=== PATIENT | female | born 1990 | race Hispanic/Latino ===

== ENCOUNTER 2017-06-26 00:06 | Emergency (ER) | payer SELFPAY ==
--- NOTE | 2017-06-26 00:28 | ER ---
Nurse's Notes [facility] Name: Penelope Villarreal Age: 27 yrs Sex: Female : 1990 Arrival Date: 06/26/2017 Time: 00:07 Bed Waiting Private MD: Diagnosis: Otalgia, left ear Presentation: 06/26 00:24 Presenting complaint: Patient states: that she is having pain to left ear that started fc Saturday. Pain is currently to entire left side of face. Transition of care: patient was not received from another setting of care. Onset of symptoms was June 22, 2017. Initial Sepsis Screen: Does the patient meet any 2 criteria? No. Patient's initial sepsis screen is negative. Does the patient have a suspected source of infection? No. Patient's initial sepsis screen is negative. Care prior to arrival: None. 00:24 Method Of Arrival: Ambulatory 00:24 Acuity: MOMO 4 Triage Assessment: 00:26 General: Appears uncomfortable, obese, Behavior is calm, cooperative, appropriate for age. Pain: Complains of pain in left ear Pain currently is 6 out of 10 on a pain scale. Quality of pain is described as aching, throbbing, Pain began gradually, Is continuous. EENT: Ear canal clear on left ear Reports pain in left occipital area, left mandaeism, left ear and left zygomatic area. Neuro: Level of Consciousness is awake, alert, obeys commands, Oriented to person, place, time, situation. Cardiovascular: No deficits noted. Respiratory: No deficits noted. GI: No deficits noted. : No deficits noted. Derm: Skin is pink, warm \T\ dry. Musculoskeletal: Circulation, motion, and sensation intact. Capillary refill < 3 seconds, Range of motion: intact in all extremities. 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 - Social history:: Smoking status: Patient/guardian denies using tobacco. Screenin:28 Abuse screen: Denies threats or abuse. Nutritional screening: No deficits noted. fc Tuberculosis screening: No symptoms or risk factors identified. Fall Risk None identified. Assessment: 00:26 Reassessment: Lorrie FOUNDATION RELATIONS MANAGER in to see and examine pt in triage. 00:47 Reassessment: No changes from previously documented assessment. pt given complete discharge instructions. Pt crying. when asked if she wanted Rn to try and get her RX for pain for home pt stated if it continued she would just go to another place to get checked. Explained low income clinic and ENT specialist to pt. States that she understands. Vital Signs: 00:28 BP 121 / 79; Pulse 77; Resp 16; Temp 97.5(TE); Pulse Ox 99% on R/A; Weight 86.18 kg fc (R); Height 5 ft. 6 in. (167.64 cm) (R); Pain 6/10; 00:28 Body Mass Index 30.67 (86.18 kg, 167.64 cm) ED Course: 00:07 Patient arrived in ED. ds1 00:23 Lorrie Gan FNP-C is [facility]. kb 00:23 Marcus Duff MD is Attending Physician. kb 00:25 Triage completed. fc 00:26 Arm band placed on. fc 00:28 Patient has correct armband on for positive identification. Call light in reach. 00:28 No provider procedures requiring assistance completed. Patient did not have IV access fc during this emergency room visit. Administered Medications: No medications were administered Outcome: 00:27 Discharge ordered by . kb 00:46 Discharged to home ambulatory. fc 00:46 Condition: stable 00:46 Discharge instructions given to patient, Instructed on discharge instructions, follow up and referral plans. if continued pain, drainage from ear or worsening of pain to return to ER or other facility Demonstrated understanding of instructions, follow-up care, things to monitor for and return for Prescriptions given X none 00:50 Patient left the ED. Signatures: Lorrie Gan FNP-C FNP-Ckb Chretien, Felicia, RN RN Avril Pate ds1
--- NOTE | 2017-06-26 00:28 | EDPHYS ---
Physician Documentation [facility] Name: Penelope Villarreal Age: 27 yrs Sex: Female : 1990 Arrival Date: 06/26/2017 Time: 00:07 Bed Waiting Private MD: ED Physician Marcus Duff HPI: 06/26 00:28 This 27 yrs old Female presents to ER via Ambulatory with complaints of Ear kb Pain. 00:28 The patient presents with pain, that is acute. The complaints affect the left ear. kb Onset: The symptoms/episode began/occurred 4 day(s) ago. Modifying factors: The symptoms are alleviated by nothing, the symptoms are aggravated by touching. Associated signs and symptoms: The patient has no apparent associated signs or symptoms. Severity of symptoms: At their worst the symptoms were moderate in the emergency department the symptoms are unchanged. The patient has not experienced similar symptoms in the past. The patient has not recently seen a physician. Pt reports left ear pain, worse when moving pinna. Denies drainage, swelling, decreased hearing, fever. 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 - Social history:: Smoking status: Patient/guardian denies using tobacco. ROS: 00:28 Constitutional: Negative for fever, chills, and weight loss, Cardiovascular: Negative kb for chest pain, palpitations, and edema, Respiratory: Negative for shortness of breath, cough, wheezing, and pleuritic chest pain, Abdomen/GI: Negative for abdominal pain, nausea, vomiting, diarrhea, and constipation, MS/Extremity: Negative for injury and deformity, Skin: Negative for injury, rash, and discoloration, Neuro: Negative for headache, weakness, numbness, tingling, and seizure. 00:28 ENT: Positive for ear pain. Exam: 00:28 Constitutional: This is a well developed, well nourished patient who is awake, alert, kb and in no acute distress. Head/Face: Normocephalic, atraumatic. ENT: Nares patent. No nasal discharge, no septal abnormalities noted. Tympanic membranes are normal and external auditory canals are clear. Oropharynx with no redness, swelling, or masses, exudates, or evidence of obstruction, uvula midline. Mucous membranes moist. Neck: Trachea midline, no thyromegaly or masses palpated, and no cervical lymphadenopathy. Supple, full range of motion without nuchal rigidity, or vertebral point tenderness. No Meningismus. Chest/axilla: Normal chest wall appearance and motion. Nontender with no deformity. No lesions are appreciated. Cardiovascular: Regular rate and rhythm with a normal S1 and S2. No gallops, murmurs, or rubs. Normal PMI, no JVD. No pulse deficits. Respiratory: Lungs have equal breath sounds bilaterally, clear to auscultation and percussion. No rales, rhonchi or wheezes noted. No increased work of breathing, no retractions or nasal flaring. Abdomen/GI: Soft, non-tender, with normal bowel sounds. No distension or tympany. No guarding or rebound. No evidence of tenderness throughout. Skin: Warm, dry with normal turgor. Normal color with no rashes, no lesions, and no evidence of cellulitis. MS/ Extremity: Pulses equal, no cyanosis. Neurovascular intact. Full, normal range of motion. Neuro: Awake and alert, GCS 15, oriented to person, place, time, and situation. Cranial nerves II-XII grossly intact. Motor strength 5/5 in all extremities. Sensory grossly intact. Cerebellar exam normal. Normal gait. Vital Signs: 00:28 BP 121 / 79; Pulse 77; Resp 16; Temp 97.5(TE); Pulse Ox 99% on R/A; Weight 86.18 kg fc (R); Height 5 ft. 6 in. (167.64 cm) (R); Pain 6/10; 00:28 Body Mass Index 30.67 (86.18 kg, 167.64 cm) fc MDM: 00:24 Patient medically screened. kb 00:29 Data reviewed: vital signs, nurses notes. Data interpreted: Pulse oximetry: on room air kb is 100 %. Interpretation: normal. Counseling: I had a detailed discussion with the patient and/or guardian regarding: the historical points, exam findings, and any diagnostic results supporting the discharge/admit diagnosis, the need for outpatient follow up, a family practitioner, to return to the emergency department if symptoms worsen or persist or if there are any questions or concerns that arise at home. Administered Medications: No medications were administered Disposition: 06:46 Co-signature as Attending Physician, Marcus Duff MD Available for consultation at ps1 all times. . Disposition: 06/26/17 00:27 Discharged to Home. Impression: Otalgia, left ear. - Condition is Stable. - Discharge Instructions: Earache. - Medication Reconciliation Form, Thank You Letter, Antibiotic Education, Prescription Opioid Use form. - Follow up: Emergency Department; When: As needed; Reason: Worsening of condition. Follow up: Private Physician; When: 2 - 3 days; Reason: Recheck today's complaints, Continuance of care, Re-evaluation by your physician. Signatures: Lorrie Gan, JULIANO MORROW-Wanda Cunningham, RN RN Marcus Angela MD MD ps1
== END 2017-06-26 00:50 | disposition home or self-care (01) ==
LOC: ER 00:06
DX: H92.02 Otalgia, left ear (principal)
CPT/HCPCS: 99282

== ENCOUNTER 2020-12-22 23:54 | Emergency (ER) | payer SELFPAY ==
[2020-12-23 01:19] LABS: Urine Blood 2+ (Negative); Urine Glucose Negative (Negative); Urine Protein 2+ (Negative); Urine Specific Gravity >=1.030 (1.005-1.030); Urine pH 5.5 (5.0-7.0)
[2020-12-23] MEDS ORDERED: NA CHLORIDE 0.9% 1,000 ML ONE (01:25)
[2020-12-23] MEDS ORDERED: ONDANSETRON 4 MG/2 ML VIAL ONE (01:25)
[2020-12-23] MEDS ORDERED: PANTOPRAZOLE 40 MG INJ ONE (01:25)
[2020-12-23 01:32] LABS: Absolute Lymphocytes (CBC) 2.2 K/uL (0.7-4.9); Basophils % 0.4 % (0-1.3); Hematocrit 36.2 % (36.0-45.0); Lymphocytes % 16.9 % (15.3-44.8); MPV 9.7 fL (7.6-11.3); RBC Red Blood Cell Count 4.53 M/uL (3.86-4.86)
[2020-12-23 01:33] LABS: Urine Specific Gravity/Preg >1.030 (1.005-1.030)
[2020-12-23 01:33] LABS: Protime INR 1.01
[2020-12-23 01:41] LABS: ALT/SGPT 29 U/L (12-78); AST/SGOT 14 U/L (15-37); Albumin 3.4 g/dL (3.4-5.0); Alkaline Phosphatase 105 U/L (45-117); BUN Blood Urea Nitrogen 15 mg/dL (7-18); Bicarbonate 23 mmol/L (21-32); Bilirubin Direct < 0.1 mg/dL (0-0.2); Bilirubin Total 0.3 mg/dL (0.2-1.0); Glucose Level 96 mg/dL (74-106); Lipase 47 U/L (73-393); Potassium 3.9 mmol/L (3.5-5.1); Protein, Total 7.9 g/dL (6.4-8.2); Sodium Level 140 mmol/L (136-145)
--- NOTE | 2020-12-23 02:51 | EDPHYS ---
Physician Documentation [facility] Name: Penelope Villarreal Age: 30 yrs Sex: Female : 1990 Arrival Date: 12/22/2020 Time: 23:59 Bed 15 Private MD: ED Physician Robby Gallegos HPI: 12/23 00:25 This 30 yrs old Female presents to ER via Ambulatory with complaints of cp Nausea, VOMITING BLOOD, Weakness, Abdominal Pain. 00:25 The patient presents to the emergency department with nausea, that is moderate, cp vomiting, that is intermittent, described as blood streaked, abdominal pain, of the lower abdomen. Onset: The symptoms/episode began/occurred last night. Possible causes: unknown. Associated signs and symptoms: Pertinent positives: headache, general weakness, Pertinent negatives: constipation, diarrhea, fever. Severity of symptoms: in the emergency department the symptoms are unchanged despite home interventions. 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 - Social history:: Smoking status: Patient denies any tobacco usage or history of. ROS: 00:30 Constitutional: Negative for body aches, chills, fever, poor PO intake. cp 00:30 Eyes: Negative for injury, pain, redness, and discharge. cp 00:30 ENT: Negative for ear pain, sore throat, difficulty swallowing, difficulty handling secretions. 00:30 Cardiovascular: Negative for chest pain, palpitations. 00:30 Respiratory: Negative for cough, shortness of breath, wheezing. 00:30 Abdomen/GI: Positive for abdominal pain, nausea and vomiting, hematemesis, Negative for diarrhea, constipation. 00:30 Back: Negative for pain at rest, pain with movement. 00:30 : Negative for urinary symptoms. 00:30 Neuro: Negative for altered mental status, headache, syncope, weakness. 00:30 All other systems are negative. Exam: 00:35 Constitutional: The patient appears in no acute distress, alert, awake, non-toxic, well cp developed, well nourished, obese. 00:35 Head/Face: Normocephalic, atraumatic. cp 00:35 Eyes: Periorbital structures: appear normal, Conjunctiva: normal, no exudate, no injection, Sclera: no appreciated abnormality, Lids and lashes: appear normal, bilaterally. 00:35 ENT: External ear(s): are unremarkable, Nose: is normal, Mouth: Lips: moist, Oral mucosa: moist, Posterior pharynx: Airway: no evidence of obstruction, patent. 00:35 Chest/axilla: Inspection: normal. 00:35 Cardiovascular: Rate: normal, Rhythm: regular. 00:35 Respiratory: the patient does not display signs of respiratory distress, Respirations: normal, no use of accessory muscles, no retractions, labored breathing, is not present, Breath sounds: are clear throughout, no decreased breath sounds, no stridor, no wheezing. 00:35 Abdomen/GI: Inspection: abdomen appears normal, Bowel sounds: active, all quadrants, Palpation: soft, in all quadrants, mild abdominal tenderness, in the right lower quadrant and left lower quadrant, rebound tenderness, is not appreciated, voluntary guarding, is not appreciated, involuntary guarding, is not appreciated. 00:35 Back: CVA tenderness, is absent. 00:35 Neuro: Orientation: to person, place \T\ time. Mentation: is normal, Motor: moves all fours, strength is normal, Sensation: is normal. Vital Signs: 00:16 BP 125 / 73; Pulse 91; Resp 16 S; Temp 97.7(O); Pulse Ox 97% on R/A; Weight 90.72 kg bb (R); Height 5 ft. 6 in. (167.64 cm) (R); Pain 9/10; 01:00 BP 117 / 62; Pulse 82; Resp 17; Pulse Ox 99% ; Pain 3/10; dc2 01:19 BP 111 / 75; Pulse 80; Resp 18; Pulse Ox 100% ; Pain 4/10; dc2 02:00 BP 104 / 56; Pulse 74; Resp 16; Temp 98.0; Pulse Ox 99% ; Pain 0/10; dc2 03:00 BP 112 / 65; Pulse 72; Resp 16; Temp 98.0(O); Pulse Ox 100% on R/A; Pain 0/10; dc2 00:16 Body Mass Index 32.28 (90.72 kg, 167.64 cm) bb MDM: 00:11 Patient medically screened. cp 01:00 Differential diagnosis: Nonspecific abd pain, gastritis, cholecystitis, pancreatitis, cp appendicitis, viral gastroenteritis, gastroenteritis. 02:50 Data reviewed: vital signs, nurses notes, lab test result(s), radiologic studies, CT cp scan. 02:50 Counseling: I had a detailed discussion with the patient and/or guardian regarding: the cp historical points, exam findings, and any diagnostic results supporting the discharge/admit diagnosis, lab results, radiology results, to return to the emergency department if symptoms worsen or persist or if there are any questions or concerns that arise at home. Response to treatment: the patient's symptoms have markedly improved after treatment, VSS. Pain and vomiting resolved. Patient tolerating po fluids. Will discharge to home for continued monitoring. 02:50 Special discussion: Based on the patient's Hx, exam, and Dx evaluation, there is no cp indication for emergent surgery or inpatient Tx. It is understood by the patient/guardian that if the Sx's persist or worsen they need to return immediately for re-evaluation. 12/23 00:19 Order name: Basic Metabolic Panel; Complete Time: 02:37 cp 12/23 02:37 Interpretation: Normal except: CL 108. cp 12/23 00:19 Order name: CBC with Diff; Complete Time: 01:50 cp 12/23 02:38 Interpretation: Normal except: WBC 13.20; HGB 11.6; MCV 79.8; MCH 25.6; RDW 16.0; ANNALISE% cp 73.9; NEUT A 9.8. 12/23 00:19 Order name: Hepatic Function; Complete Time: 02:37 cp 12/23 02:38 Interpretation: Normal except: AST 14; GLOB 4.5; A/G 0.8. cp 12/23 00:19 Order name: Lipase; Complete Time: 02:37 cp 12/23 02:38 Interpretation: Normal except: LIP 47. cp 12/23 00:19 Order name: PT-INR; Complete Time: 02:37 cp 12/23 00:19 Order name: Ptt, Activated; Complete Time: 02:37 cp 12/23 00:19 Order name: IV Saline Lock; Complete Time: 01:02 cp 12/23 00:19 Order name: Labs collected and sent; Complete Time: 01:07 cp 12/23 00:19 Order name: CT Abd/Pelvis - IV Contrast Only cp 12/23 01:19 Order name: Urine Dipstick-Ancillary; Complete Time: 01:33 EDMS 12/23 01:20 Order name: Urine --Ancillary (enter results); Complete Time: 01:50 tt3 12/23 00:19 Order name: Urine Dipstick-Ancillary (obtain specimen); Complete Time: 01:19 cp 12/23 00:19 Order name: Urine Test (obtain specimen); Complete Time: 01:19 cp 12/23 02:40 Order name: PO challenge cp Administered Medications: 01:00 Drug: NS 0.9% 1000 ml Route: IV; Rate: 1 bolus; Infused Over: 1 hrs; Site: right dc2 antecubital; Delivery: Primary tubing; 02:00 Follow up: IV Status: Completed infusion; IV Intake: 1000ml dc2 01:01 Drug: ProTONIX (pantoprazole) 40 mg Route: IVP; Site: right antecubital; dc2 01:40 Follow up: Response: Nausea is decreased dc2 01:02 Drug: Zofran (Ondansetron) 4 mg Route: IVP; Site: right antecubital; dc2 01:40 Follow up: Response: Nausea is decreased dc2 Disposition: 03:45 Co-signature as Attending Physician, Robby Gallegos MD. [email or web address] Disposition Summary: 12/23/20 02:50 Discharge Ordered Location: Home cp Problem: new cp Symptoms: have improved cp Condition: Stable cp Diagnosis - Nausea with vomiting, unspecified cp Followup: cp - With: Private Physician - When: 1 - 2 days - Reason: Recheck today's complaints Discharge Instructions: - Discharge Summary Sheet cp - Nausea and Vomiting, Adult cp Forms: - Medication Reconciliation Form cp - Thank You Letter cp - Antibiotic Education cp - Prescription Opioid Use cp Prescriptions: - Protonix 40 mg Oral tablet,delayed release (DR/EC) - take 1 tablet by ORAL route once daily; 20 tablet; Refills: 0, Product cp Selection Permitted - Zofran 4 mg Oral Tablet - take 1 tablet by ORAL route every 12 hours As needed; 20 tablet; Refills: 0, cp Product Selection Permitted Signatures: Dispatcher [employer] EDNeena Urrutiaa, RN RN bb Oni Gomez, SALES CENTER ASSOCIATE-C SALES CENTER ASSOCIATE-Cla1 Jaime Brown PA PA cp Holmes, Maurice, MD MD [email or web address] Cece Sneed RN RN dc2
--- NOTE | 2020-12-23 02:51 | ER ---
Nurse's Notes [facility] Name: Penelope Villarreal Age: 30 yrs Sex: Female : 1990 Arrival Date: 12/22/2020 Time: 23:59 Bed 15 Private MD: Diagnosis: Nausea with vomiting, unspecified Presentation: 12/23 00:16 Chief complaint: Patient states: she has not been feeling well has a headache, lower bb abdominal pain, feels dizzy, and vomited blood several times tonight. Coronavirus screen: headache, vomiting. Client presents with at least one sign or symptom that may indicate coronavirus-19. Standard/surgical mask placed on the client. Ebola Screen: No symptoms or risks identified at this time. Initial Sepsis Screen: Does the patient meet any 2 criteria? No. Patient's initial sepsis screen is negative. Does the patient have a suspected source of infection? No. Patient's initial sepsis screen is negative. Risk Assessment: Do you want to hurt yourself or someone else? Patient reports no desire to harm self or others. Onset of symptoms was December 23, 2020. 00:16 Method Of Arrival: Ambulatory bb 00:16 Acuity: MOMO 3 bb Triage Assessment: 01:00 General: Appears in no apparent distress. uncomfortable, obese, well groomed. Pain: dc2 Denies pain. Neuro: No deficits noted. Level of Consciousness is awake, alert, obeys commands. Respiratory: No deficits noted. Airway is patent Breath sounds are clear bilaterally. GI: Reports diarrhea, nausea, vomiting. 01:00 : No deficits noted. No signs and/or symptoms were reported regarding the dc2 genitourinary system. Derm: No deficits noted. No signs and/or symptoms reported regarding the dermatologic system. Musculoskeletal: No deficits noted. No signs and/or symptoms reported regarding the musculoskeletal system. Capillary refill < 3 seconds, is brisk, fingers. 01:00 General: Behavior is calm, cooperative. 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 - Social history:: Smoking status: Patient denies any tobacco usage or history of. Screenin:00 Abuse screen: Denies threats or abuse. Denies injuries from another. Nutritional dc2 screening: No deficits noted. Tuberculosis screening: No symptoms or risk factors identified. Never had TB. Fall Risk None identified. No fall in past 12 months (0 pts). No secondary diagnosis (0 pts). No IV (0 pts). Ambulatory Aid- None/Bed Rest/Nurse Assist (0 pts). Gait- Normal/Bed Rest/Wheelchair (0 pts) Mental Status- Oriented to own ability (0 pts). Total Gonzalez Fall Scale indicates High Risk Score (45 or more points). Assessment: 02:56 Reassessment: PO challenge ordered at this time before patient is discharged. Discharge dc2 delay due to this new order. Vital Signs: 00:16 BP 125 / 73; Pulse 91; Resp 16 S; Temp 97.7(O); Pulse Ox 97% on R/A; Weight 90.72 kg bb (R); Height 5 ft. 6 in. (167.64 cm) (R); Pain 9/10; 01:00 BP 117 / 62; Pulse 82; Resp 17; Pulse Ox 99% ; Pain 3/10; dc2 01:19 BP 111 / 75; Pulse 80; Resp 18; Pulse Ox 100% ; Pain 4/10; dc2 02:00 BP 104 / 56; Pulse 74; Resp 16; Temp 98.0; Pulse Ox 99% ; Pain 0/10; dc2 03:00 BP 112 / 65; Pulse 72; Resp 16; Temp 98.0(O); Pulse Ox 100% on R/A; Pain 0/10; dc2 00:16 Body Mass Index 32.28 (90.72 kg, 167.64 cm) bb ED Course: 12/22 23:59 Patient arrived in ED. cf2 12/23 00:05 Jaime Brown PA is PHCP. cp 00:05 Robby Gallegos MD is Attending Physician. cp 00:18 Triage completed. bb 00:18 Arm band placed on Patient placed in an exam room, on a stretcher, on pulse oximetry. bb Family accompanied patient. 00:21 Cece Sneed, ALEX is Primary Nurse. dc2 00:30 Inserted saline lock: 20 gauge in right antecubital area, using aseptic technique. dc2 Blood collected. 01:00 Patient has correct armband on for positive identification. Placed in gown. Bed in low dc2 position. Call light in reach. Side rails up X 1. threat monitoring analyst on. Pulse ox on. NIBP on. Door closed. Lights dimmed. 01:07 PT-INR Sent. dc2 01:07 Basic Metabolic Panel Sent. dc2 01:08 CBC with Diff Sent. dc2 01:08 Hepatic Function Sent. dc2 01:08 Lipase Sent. dc2 01:20 Urine --Ancillary (enter results) Sent. dc2 01:[address] dc2 02:03 CT Abd/Pelvis - IV Contrast Only In Process Unspecified. EDMS 02:33 Resting quietly. Awaiting disposition. dc2 03:15 IV discontinued, intact, bleeding controlled, No redness/swelling at site. Pressure dc2 dressing applied. 03:15 No provider procedures requiring assistance completed. dc2 Administered Medications: 01:00 Drug: NS 0.9% 1000 ml Route: IV; Rate: 1 bolus; Infused Over: 1 hrs; Site: right dc2 antecubital; Delivery: Primary tubing; 02:00 Follow up: IV Status: Completed infusion; IV Intake: 1000ml dc2 01:01 Drug: ProTONIX (pantoprazole) 40 mg Route: IVP; Site: right antecubital; dc2 01:40 Follow up: Response: Nausea is decreased dc2 01:02 Drug: Zofran (Ondansetron) 4 mg Route: IVP; Site: right antecubital; dc2 01:40 Follow up: Response: Nausea is decreased dc2 Intake: 02:00 IV: 1000ml; Total: 1000ml. dc2 Outcome: 02:50 Discharge ordered by . gregorio 03:20 Condition: stable dc2 03:20 Discharge instructions given to Instructed on discharge instructions, follow up and referral plans. Demonstrated understanding of instructions, follow-up care, medications, Prescriptions given X 2. 03:20 Discharged to home ambulatory. dc2 03:37 Patient left the ED. dc2 Signatures: Dispatcher [employer] Dian Arias RN RN bb Jaime Brown PA PA cp Frazier, Celesta cf2 Naren, Cece, RN RN dc2
[2020-12-23 04:07] VITALS: TEMP 98
[2020-12-23 04:09] VITALS: BP 112/65; O2SAT 100
--- NOTE | 2020-12-23 13:49 | RAD REPORT ---
EXAM DESCRIPTION: CT - Abdomen Pelvis W Contrast - 12/23/2020 6:32 am CLINICAL HISTORY: 30 years, Female, lower abdomen pain COMPARISON: None. TECHNIQUE: Contrast-enhanced images of the abdomen and pelvis were performed utilizing 5 mm slice th ickness at 5 mm interval reconstruction from the lung bases to the ischial tuberosities after the adm inistration of IV contrast. In addition multiplanar reformats in the coronal and sagittal plane were obtained and reviewed. This exam was performed according to our departmental dose-optimization protocol, which includes auto mated exposure control, adjustment of the mA and/or kV according to patient size and/or use of iterat andre reconstruction technique. FINDINGS: The lung bases demonstrate to be clear. The liver demonstrate marked decreased attenuation, and increase in size. Otherwise the liver, gallbl adder, pancreas, spleen and adrenal glands demonstrate to be unremarkable, no focal lesions are noted . The kidneys demonstrate normal uptake of contrast media. No evidence for nephrolithiasis and/or hydro nephrosis. Grossly the unopacified stomach, small bowel and large bowel demonstrate to be within normal limits. There is no evidence for bowel dilatation an/or free air. The appendix is normal. The urinary bladder demonstrate to be unremarkable. The uterus demonstrate prominence of the endome trial cavity perhaps suggesting imminent menstruation otherwise the uterus demonstrate to be unremark able. There is a cystic structure within the left adnexa measuring approximately 4.5 x 3.5 cm on imag e 79/103. The aorta demonstrate to be normal. There is no retroperitoneal lymphadenopathy. There is no evidence for ascites or an/or significant abnormal fluid collections. The rest of the soft tiss ue and bony structures are within normal limits. IMPRESSION: 4.5 cyst left adnexa, which may represent an ovarian cyst. No follow-up imaging is recom mended. Reference: J Am Ghassan Radiol 2013;10:[id number] Hepatomegaly and hepatic steatosis. Prominent fluid-filled endometrial cavity, perhaps suggesting imminent menstruation. Normal appendix. No evidence for acute intra-abdominal process. Electronically signed by: Allan Anderson MD 12/23/2020 2:32 AM CDT Due to temporary technical issues with the PACS/Fluency reporting system, reports are being signed by the in house radiologists without review as a courtesy to insure prompt reporting. The interpreting radiologist is fully responsible for the content of the report.
== END 2020-12-23 03:37 | disposition home or self-care (01) ==
LOC: ER 23:54
DX: R11.2 Nausea with vomiting, unspecified (principal)
CPT/HCPCS: 36415; 74177; 80048; 80076; 81003; 81025; 83690; 85025; 85610; 85730; 96361; 96374; 96375; 99285; C9113; J2405; J7030; Q9967

== ENCOUNTER 2022-11-30 18:19 | Emergency (ER) | payer SELFPAY ==
[2022-11-30] MEDS ORDERED: FAMOTIDINE 20 MG/2 ML VIAL IV ONE (18:52)
[2022-11-30] MEDS ORDERED: ONDANSETRON 4 MG/2 ML VIAL ONE (18:52)
[2022-11-30 19:07] LABS: Absolute Lymphocytes (CBC) 2.5 K/uL (0.7-4.9); Hematocrit 32.6 % (36.0-45.0); Lymphocytes % 19.3 % (15.3-44.8); MCV 71.8 fL (80-100); MPV 9.5 fL (7.6-11.3); Platelets 312 thou/uL (152-406); RBC Red Blood Cell Count 4.53 M/uL (3.86-4.86)
[2022-11-30 19:24] LABS: Specific Gravity 1.025 (1.005-1.030)
[2022-11-30 19:27] LABS: Specific Gravity 1.025 (1.005-1.030); Urine Bacteria None Seen /HPF (<20); Urine Bilirubin NEGATIVE (Negative); Urine Blood Negative (Negative); Urine Clarity Extremely Turbid (Clear); Urine Color Light-Yellow (Yellow); Urine Glucose NEGATIVE (Negative); Urine Mucus 1+ /HPF (None Seen); Urine Protein TRACE (Negative); Urine RBC <5 /HPF (None Seen); Urine Urobilinogen Normal (Normal); Urine pH 6.5 (5.0-7.0)
[2022-11-30 20:03] LABS: Bilirubin Total 0.2 mg/dL (0.2-1.0); Potassium 3.8 mEq/L (3.5-5.1); Protein, Total 7.2 g/dL (6.4-8.2)
--- NOTE | 2022-11-30 20:17 | RAD REPORT ---
EXAM DESCRIPTION: CT - Abdomen Pelvis W Contrast - 11/30/2022 8:02 pm CLINICAL HISTORY: Abdominal pain COMPARISON: 2020 TECHNIQUE: Computed axial tomography of the abdomen pelvis was obtained. 100 cc Isovue-300 was admin istered intravenously. Oral contrast was not requested which limits evaluation of bowel and appendix All CT scans are performed using dose optimization technique as appropriate and may include automated exposure control or mA/KV adjustment according to patient size. FINDINGS: Fatty liver Spleen, pancreas, adrenal and kidneys appear unremarkable. There is no evidence of diverticulitis. Normal appendix 3.4 centimeter right ovarian cyst Small umbilical hernia IMPRESSION: 3.4 centimeter right ovarian cyst. No significant free fluid No followup imaging recommended
--- NOTE | 2022-11-30 20:18 | RAD REPORT ---
EXAM DESCRIPTION: US - Abdomen Exam Limited - 11/30/2022 7:51 pm CLINICAL HISTORY: Abdominal pain. COMPARISON: None. FINDINGS: The gallbladder wall is not thickened. A gallstone is not seen. The biliary tree is normal caliber. IMPRESSION: Unremarkable gallbladder ultrasound.
--- NOTE | 2022-11-30 20:28 | ER ---
Nurse's Notes [facility] Name: Penelope Villarreal Age: 32 yrs Sex: Female : 1990 Arrival Date: 11/30/2022 Time: 18:19 Bed 8 Private MD: Diagnosis: Upper abdominal pain, unspecified Presentation: 11/30 18:29 Chief complaint: Epigastric pain and N/V/D x 3 days. Coronavirus screen: At this time, hb the client does not indicate any symptoms associated with coronavirus-19. Ebola Screen: No symptoms or risks identified at this time. Initial Sepsis Screen: Does the patient meet any 2 criteria? No. Patient's initial sepsis screen is negative. Does the patient have a suspected source of infection? No. Patient's initial sepsis screen is negative. Risk Assessment: Do you want to hurt yourself or someone else? Patient reports no desire to harm self or others. Onset of symptoms was November 27, 2022. 18:29 Method Of Arrival: Ambulatory hb 18:29 Acuity: MOMO 3 hb Historical: - Allergies: 18:30 No Known Allergies; hb - Home Meds: 18:30 None [Active]; hb - PMHx: 18:30 None; hb - PSHx: 18:30 None; hb - Immunization history:: Adult Immunizations up to date. - Social history:: Smoking status: Patient denies any tobacco usage or history of. - Family history:: not pertinent. - Hospitalizations: : No recent hospitalization is reported. Screenin:44 [facility] ED Fall Risk Assessment (Adult) History of falling in the last 3 months, ko1 including since admission No falls in past 3 months (0 pts) Confusion or Disorientation No (0 pts) Intoxicated or Sedated No (0 pts) Impaired Gait No (0 pts) Mobility Assist Device Used No (0 pt) Altered Elimination No (0 pt) Score/Fall Risk Level 0 - 2 = Low Risk Oriented to surroundings, Maintained a safe environment, Educated pt \T\ family on fall prevention, incl call for assistance when getting out of bed, Assessed \T\ reinforced patient's understanding of fall precautions, Provided non-skid footwear, Hourly rounding (assess needs \T\ fall precautionary measures) done, Used ambulatory aids as needed (educated on \T\ assisted with), Used gait belt as appropriate. Abuse screen: Denies threats or abuse. Denies injuries from another. Nutritional screening: No deficits noted. Tuberculosis screening: No symptoms or risk factors identified. Assessment: 18:44 General: Appears in no apparent distress. uncomfortable, Behavior is calm, cooperative, ko1 appropriate for age. Pain: Complains of pain in abdomen. Neuro: No deficits noted. Cardiovascular: No deficits noted. Respiratory: No deficits noted. GI: Bowel sounds present X 4 quads. Abd is soft X 4 quads Reports nausea. : No deficits noted. EENT: No deficits noted. Derm: No deficits noted. Musculoskeletal: No deficits noted. 19:15 Reassessment: Patient appears in no apparent distress at this time. Patient and/or jb4 family updated on plan of care and expected duration. Pain level reassessed. Patient is alert, oriented x 3, equal unlabored respirations, skin warm/dry/pink. 20:40 Reassessment: Patient appears in no apparent distress at this time. Patient and/or jb4 family updated on plan of care and expected duration. Pain level reassessed. Patient is alert, oriented x 3, equal unlabored respirations, skin warm/dry/pink. Vital Signs: 18:29 BP 161 / 105; Pulse 96; Resp 16; Temp 98.6(O); Pulse Ox 100% on R/A; Weight 108.86 kg; hb Height 5 ft. 4 in. ; Pain 6/10; 18:54 BP 125 / 65; Pulse 80; Resp 14; Pulse Ox 99% ; ko1 19:30 BP 139 / 72; Pulse 79; Resp 16; Pulse Ox 100% on R/A; jb4 20:40 BP 140 / 71; Pulse 75; Resp 16; Pulse Ox 98% on R/A; jb4 18:29 Body Mass Index 41.20 (108.86 kg, 162.56 cm) hb 18:29 Pain Scale: Adult hb ED Course: 18:22 Patient arrived in ED. mr 18:24 Rico Vaughan MD is Attending Physician. rn 18:30 Triage completed. hb 18:30 Inserted saline lock: 20 gauge in right antecubital area, using aseptic technique. ko1 Blood collected. 18:31 Arm band placed on. hb 18:36 Kaylie Del Rosario, ALEX is Primary Nurse. ko1 18:36 CBC with Diff Sent. ko1 18:36 CMP Sent. ko1 18:36 Lipase Sent. ko1 18:44 Patient has correct armband on for positive identification. Bed in low position. Call ko1 light in reach. Side rails up X 1. Provided Education on: na. Pulse ox on. NIBP on. Door closed. Noise minimized. Lights dimmed. Warm blanket given. 19:53 US Abdomen Limited In Process Unspecified. EDMS 20:03 CT Abd/Pelvis - IV Contrast Only In Process Unspecified. EDMS 20:40 No provider procedures requiring assistance completed. IV discontinued, intact, jb4 bleeding controlled, No redness/swelling at site. Pressure dressing applied. Administered Medications: 18:41 Drug: Famotidine IVP 20 mg IVP once; dilute with 10 mL 0.9% NaCl; give over 2 minutes ko1 Route: IVP; Site: right antecubital; 18:43 Drug: Ondansetron IVP 4 mg IVP once; over 2 minutes Route: IVP; Site: right antecubital;ko1 20:39 Drug: Ciprofloxacin PO 500 mg PO once Route: PO; jb4 20:39 Follow up: Response: No adverse reaction jb4 20:39 Drug: metroNIDAZOLE PO 500 mg PO once Route: PO; jb4 20:39 Follow up: Response: No adverse reaction jb4 Outcome: 20:28 Discharge ordered by . rn 20:40 Discharged to home ambulatory, jb4 20:40 Condition: stable 20:40 Discharge instructions given to patient, Instructed on discharge instructions, follow up and referral plans. medication usage, Demonstrated understanding of instructions, follow-up care, medications, Prescriptions given X 3, 20:41 Patient left the ED. jb4 Signatures: Dispatcher [employer] EDMN NehemiasYesenia, Reg Reg mr Rico Vaughan MD MD rn Baxter, Heather, RN RN hb Bryson, James, RN RN jb4 Kaylie Del Rosario RN RN ko1 Corrections: (The following items were deleted from the chart) 20:04 20:04 Reassessment: Patient appears in no apparent distress at this time. Patient jb4 and/or family updated on plan of care and expected duration. Pain level reassessed. Patient is alert, oriented x 3, equal unlabored respirations, skin warm/dry/pink. jb4
--- NOTE | 2022-11-30 20:28 | EDPHYS ---
Physician Documentation [facility] Name: Penelope Villarreal Age: 32 yrs Sex: Female : 1990 Arrival Date: 11/30/2022 Time: 18:19 Bed 8 Private MD: ED Physician Rico Vaughan HPI: 11/30 18:49 This 32 yrs old Female presents to ER via Ambulatory with complaints of rn Abdominal Pain, Nausea. 18:49 The patient presents to the emergency department with nausea, vomiting, abdominal pain. rn Onset: The symptoms/episode began/occurred 3 day(s) ago. Possible causes: unknown. The symptoms are aggravated by pressure, The symptoms are alleviated by nothing. Associated signs and symptoms: Pertinent positives: abdominal pain, nausea, vomiting, Pertinent negatives: fever, GI bleeding. Severity of symptoms: At their worst the symptoms were moderate in the emergency department the symptoms have improved. The patient has not experienced similar symptoms in the past. The patient has not recently seen a physician. Patient reports epigastric abdominal pain that began 3 days ago. Associated with nausea. Reports has acid reflux that is worse in the morning but has never felt like this. No radiation. No fever. No chest pain or cough. No shortness of breath. No blood in the stool. Denies being .. Historical: - Allergies: 18:30 No Known Allergies; hb - Home Meds: 18:30 None [Active]; hb - PMHx: 18:30 None; hb - PSHx: 18:30 None; hb - Immunization history:: Adult Immunizations up to date. - Social history:: Smoking status: Patient denies any tobacco usage or history of. - Family history:: not pertinent. - Hospitalizations: : No recent hospitalization is reported. ROS: 18:49 Constitutional: Negative for fever, chills, and weight loss, Cardiovascular: Negative rn for chest pain, palpitations, and edema, Respiratory: Negative for shortness of breath, cough, wheezing, and pleuritic chest pain, Abdomen/GI: Positive for abdominal pain and nausea Back: Negative for injury and pain, MS/Extremity: Negative for injury and deformity, Skin: Negative for injury, rash, and discoloration, Neuro: Negative for headache, weakness, numbness, tingling, and seizure, Exam: 18:49 Constitutional: This is a well developed, well nourished patient who is awake, alert, rn and in no acute distress. Head/Face: Normocephalic, atraumatic. Cardiovascular: Regular rate and rhythm. No pulse deficits. Respiratory: No increased work of breathing, no retractions or nasal flaring. Abdomen/GI: Soft, tender epigastric region. Negative Lang Skin: Warm, dry MS/ Extremity: Pulses equal, no cyanosis. Neuro: Awake and alert, GCS 15 Vital Signs: 18:29 BP 161 / 105; Pulse 96; Resp 16; Temp 98.6(O); Pulse Ox 100% on R/A; Weight 108.86 kg; hb Height 5 ft. 4 in. ; Pain 6/10; 18:54 BP 125 / 65; Pulse 80; Resp 14; Pulse Ox 99% ; ko1 19:30 BP 139 / 72; Pulse 79; Resp 16; Pulse Ox 100% on R/A; jb4 20:40 BP 140 / 71; Pulse 75; Resp 16; Pulse Ox 98% on R/A; jb4 18:29 Body Mass Index 41.20 (108.86 kg, 162.56 cm) hb 18:29 Pain Scale: Adult hb MDM: 18:24 Patient medically screened. rn 20:26 Differential diagnosis: Nonspecific abd pain, gastritis, cholecystitis, pancreatitis, rn appendicitis, diverticulitis, viral gastroenteritis, gastroenteritis. Data reviewed: vital signs, nurses notes, lab test result(s), radiologic studies, CT scan, ultrasound, and as a result, I will discharge patient. Counseling: I had a detailed discussion with the patient and/or guardian regarding the historical points, exam findings, and any diagnostic results supporting the discharge/admit diagnosis, lab results, radiology results, the need for outpatient follow up, to return to the emergency department if symptoms worsen or persist or if there are any questions or concerns that arise at home. Response to treatment: the patient's symptoms have mildly improved after treatment. Special discussion: I discussed with the patient/guardian in detail that at this point there is no indication for admission to the hospital. It is understood, however, that if the symptoms persist or worsen the patient needs to return immediately for re-evaluation. Based on the history and exam findings, there is no indication for further emergent testing or inpatient evaluation. I discussed with the patient/guardian the need to see the separator inserter for further evaluation of the symptoms. 20:26 ED course: I have personally reviewed all of the results, including but not limited to rn blood tests and imaging deemed necessary to safely discharge this patient at this time. All results given to and printed out for patient. I personally went over all the results with the patient and answered all questions. Patient will follow-up with PCP and or specialist as discussed. Return precautions given and understood.. 11/30 18:29 Order name: CBC with Diff; Complete Time: 19:35 rn 11/30 18:29 Order name: CMP; Complete Time: 20:09 rn 11/30 18:29 Order name: Lipase; Complete Time: 20: rn 11/30 18:44 Order name: Test, Urine; Complete Time: 19:35 rn 11/30 18:44 Order name: Urinalysis w/ reflexes; Complete Time: 19:35 rn 11/30 18:29 Order name: CT Abd/Pelvis - IV Contrast Only; Complete Time: 20:21 rn 11/30 18:29 Order name: US Abdomen Limited; Complete Time: 20:21 rn 11/30 18:29 Order name: IV Saline Lock; Complete Time: 18:36 rn 11/30 18:29 Order name: Labs collected and sent; Complete Time: 18:36 rn Administered Medications: 18:41 Drug: Famotidine IVP 20 mg IVP once; dilute with 10 mL 0.9% NaCl; give over 2 minutes ko1 Route: IVP; Site: right antecubital; 18:43 Drug: Ondansetron IVP 4 mg IVP once; over 2 minutes Route: IVP; Site: right antecubital;ko1 20:39 Drug: Ciprofloxacin PO 500 mg PO once Route: PO; jb4 20:39 Follow up: Response: No adverse reaction jb4 20:39 Drug: metroNIDAZOLE PO 500 mg PO once Route: PO; jb4 20:39 Follow up: Response: No adverse reaction jb4 Disposition Summary: 11/30/22 20:28 Discharge Ordered Notes: Location: Home rn Problem: new rn Symptoms: have improved rn Condition: Stable rn Diagnosis - Upper abdominal pain, unspecified rn Followup: rn - With: Private Physician - When: As needed - Reason: Recheck today's complaints, Re-evaluation by your physician Discharge Instructions: - Discharge Summary Sheet rn - Abdominal Pain, Adult rn - Gastritis, Adult rn - Gastroesophageal Reflux Disease, Adult rn Forms: - Medication Reconciliation Form rn - Thank You Letter rn - Antibiotic skeins yarn examiner - Prescription Opioid Use rn - Patient Portal Instructions rn - Leadership Thank You Letter rn Prescriptions: - Cipro 500 mg Oral Tablet - take 1 tablet ORAL route every 12 hours for 10 days; 20 tablet; Refills: 0, rn Product Selection Permitted - Flagyl 500 mg Oral Tablet - take 1 tablet ORAL route every 8 hours for 10 days; 30 tablet; Refills: 0, rn Product Selection Permitted - Protonix 40 mg Oral Tablet - take 1 tablet ORAL route once daily; 30 tablet; Refills: 0, Product Selection rn Permitted Signatures: Dispatcher [employer] Rico Sarkar MD MD rn Baxter, Heather RN Jacob Sahni RN RN jb4 Kaylie Del Rosario RN RN ko1
[2022-11-30 20:45] VITALS: TEMP 98.6
[2022-11-30] MEDS ORDERED: metroNIDAZOLE 500 MG TABLET ONE (20:45)
[2022-11-30] MEDS ORDERED: CIPROFLOXACIN HCL 500 MG TAB ONE (20:45)
[2022-11-30 20:49] VITALS: BP 140/71; O2SAT 98
== END 2022-11-30 20:41 | disposition home or self-care (01) ==
LOC: ER 18:19
DX: R10.13 Epigastric pain (principal)
CPT/HCPCS: 36415; 74177; 76705; 80053; 81001; 81025; 83690; 85025; 96374; 96375; 99284; J2405; Q9967

== ENCOUNTER 2024-01-06 16:48 | Emergency (ER) | payer SELFPAY ==
--- OUTSIDE RECORDS SUMMARY | 2024-01-06 16:50 | XMS REPORT | Continuity of Care Document ---
Author Name Unknown Address [address] [place] [address] [facility] thconnect Address [address] [place] [address] Care Team Providers Care Erosion Control Coordinator Name Role Phone Guillermina Vidal Primary Care Physician Medications Ordered Medication Name Filled Medication Name Start Date Stop Date Current Medication? Ordering Clinician Indication Dosage Frequency Signature (SIG) Comments Components Source pantoprazol e 40 mg tablet,rikki yed release 2022-02 0-08 00:00: 00 Yes mg Jama Regalado metronidazo le 500 mg tablet 2022-02 0-08 00:00: 00 Yes mg Jama Juancarlos Regalado ciprofloxac in 500 mg tablet 2022-02 0-08 00:00: 00 Yes mg Jama Juancarlos Regalado Vital Signs Vital Name Observation Time Observation Value Comments S ource Respiratory Rate 2023-07-15 10:53:00 16.00 /min Jama Juancarlos Regalado BP Systolic 2023-07-15 10:53:00 129 mm[Hg] Step hen F Fabricio BP Diastolic 2023-07-15 10:53:00 87 mm[Hg] [place] phen F Fabricio Weight Measured 2023-07-15 10:53:00 258.80 pounds Jama Regalado Height Measured 2023-07-15 10:53:00 65.00 inches Jama F Fabricio Body Temperature 2023-07-15 10:53:00 98.10 degrees Jama F Fabricio Heart Rate 2023-07-15 10:53:00 67.00 /min Rossi en F Fabricio BP Systolic 2022-03-20 10:53:00 119 mm[Hg] Step hen F Fabricio BP Diastolic 2022-03-20 10:53:00 63 mm[Hg] [place] phen Juancarlos Regalado Weight Measured 2022-03-20 10:53:00 243.80 pounds Jama Regalado Height Measured 2022-03-20 10:53:00 65.00 inches Jama Regalado Body Temperature 2022-03-20 10:53:00 97.70 degrees Jama Regalado Heart Rate 2022-03-20 10:53:00 74.00 /min Rossi en F Fabricio Respiratory Rate 2022-03-20 10:53:00 25.00 /min Jama Regalado BP Systolic 2017-05-04 10:09:00 116 mm[Hg] Step hen Juancarlos Regalado BP Diastolic 2017-05-04 10:09:00 77 mm[Hg] [place] phen Juancarlos Regalado Weight Measured 2017-05-04 10:09:00 234.60 pounds Jama Regalado Height Measured 2017-05-04 10:09:00 65.00 inches Jama Regalado Body Temperature 2017-05-04 10:09:00 98.30 degrees Jama Regalado Heart Rate 2017-05-04 10:09:00 86.00 /min Rossi en Juancarlos Regalado Respiratory Rate 2017-05-04 10:09:00 16.00 /min Jama Regalado Encounters Start Date/Time End Date/Time Encounter Type Admission Type Attending [facility] Facility Care Department Encounter ID Source 2023-07-15 10:43:42 2023-07-15 10:43:42 Outpatient [facility] [id number] Jama Regalado 2023-07-15 00:00:00 2023-07-15 00:00:00 Outpatient Visit [facility] [id number] Jama Regalado Results Test Description Test Time Test Comments Results Result Co mments Source Jama RegaladoCBC W/AUTO [id number] 00:00:00* Test Item Value Reference Range Interpretation Comme nts WBC (test code = 1001) 8.9 K/UL RBC (test code = 1002) 4.44 M/UL HEMOGLOBIN (test code = 1003) 11.6 G/DL HEMATOCRIT (test code = 1004) 34.6 % MCV (test code = 1005) 77.9 fL MCH (test code = 1006) 26.1 PG MCHC (test code = 1007) 33.5 G/DL RDW (test code = 1038) 14.9 % NEUTROPHILS (test code = 1008) 73.5 % LYMPHOCYTES (test code = 1010) 15.6 % MONOCYTES (test code = 1011) 8.3 % EOSINOPHILS (test code = 1012) 1.9 % BASOPHILS (test code = 1013) 0.7 % PLATELET COUNT (test code = 1015) 261 K/UL Jama Regalado Notes Date/Time Note Provider Source Jama Regalado [facility]
[2024-01-06] MEDS ORDERED: ACETAMINOPHEN 500 MG TAB ONE (17:46)
[2024-01-06] MEDS ORDERED: KETOROLAC 30 MG/ML INJ ONE (17:46)
--- NOTE | 2024-01-06 19:39 | RAD REPORT ---
EXAM: XR Knee Left 3 View HISTORY: [facility] MAIN Swelling;Pain Bed Name: Treatment COMPARISON: None TECHNIQUE: 3 views of the left knee were obtained. FINDINGS: Moderate knee effusion is seen. Depressed lateral tibial plateau fracture, of uncertain chr onicity. No significant degenerative changes are seen. No soft tissue swelling or other soft tissue abnormality is present. IMPRESSION: Depressed lateral tibial plateau fracture. Moderate knee joint effusion.
--- NOTE | 2024-01-06 19:53 | EDPHYS ---
Physician Documentation [facility] Name: Penelope Villarreal Age: 33 yrs Sex: Female : 1990 Arrival Date: 01/06/2024 Time: 16:48 Bed Treatment Private MD: GUILLERMINA Physician Jaime Lopez HPI: 01/05 17:42 This 33 yrs old Female presents to ER via Ambulatory with complaints of Leg dr5 Pain. 17:42 The patient presents with pain, tenderness. The complaints affect the left knee. dr5 Patient is a 33-year-old female presenting with left knee pain after exercising yesterday. Patient was on elliptical when she heard a pop. Patient is unable to ambulate with steady gait and has been limping.. Historical: - Allergies: 17:10 No Known Allergies; ss - Home Meds: 17:10 None [Active]; ss - PMHx: 17:10 None; ss - PSHx: 17:10 L knee; ss - Infectious Disease History:: Denies. - Social history:: Smoking status: Patient denies any tobacco usage or history of. ROS: 17:42 Constitutional: as per hpi dr5 Exam: 17:42 Constitutional: This is a well developed, well nourished patient who is awake, alert, dr5 and in no acute distress. Head/Face: Normocephalic, atraumatic. Chest/axilla: Normal chest wall appearance and motion. Nontender with no deformity. No lesions are appreciated. Cardiovascular: Regular rate and rhythm with a normal S1 and S2. Normal PMI, no JVD. No pulse deficits. Respiratory: Lungs have equal breath sounds bilaterally, clear to auscultation. No rales, rhonchi or wheezes noted. No increased work of breathing, no retractions or nasal flaring. Back: No spinal tenderness. No costovertebral tenderness. Full range of motion. 17:42 Musculoskeletal/extremity: Extremities: grossly normal except: noted in the left knee: swelling, tenderness, ROM: full passive range of motion, in the left knee, Circulation is intact in all extremities. the left knee Negative anterior / posterior drawer test. Negative valgus / varus test.. 17:42 Skin: 17:42 Neuro: Orientation: appropriate for stated age, Vital Signs: 17:09 BP 135 / 92; Pulse 85; Resp 16; Temp 97.6(TE); Pulse Ox 100% on R/A; Weight 95.25 kg; ss Height 5 ft. 6 in. ; Pain 10/10; 20:30 BP 128 / 90; Pulse 82; Resp 16; Pulse Ox 100% ; vc1 17:09 Body Mass Index 33.89 (95.25 kg, 167.64 cm) 17:09 Pain Scale: Adult ss Procedures: 20:08 Splinting: Splint applied to left leg using knee immobilizer, applied by tech. post dr5 reduction film - Examined by me, post splint application: Patient tolerated well, Crutches given. Crutch training provided to patient and/or family. Return demonstration given. MDM: 17:05 Medical Screening Exam initiated dr5 17:42 Differential diagnosis: dislocation, open fracture, closed fracture, contusion, dr5 abrasion. Data reviewed: vital signs, nurses notes. 20:08 Differential diagnosis: dislocation, open fracture, closed fracture, contusion, dr5 abrasion. Data reviewed: vital signs, nurses notes. Consideration of Admission/Observation Escalation of care including admission/observation considered. Considered admission versus escalation if fracture required surgery. I considered the following discharge prescriptions or medication management in the emergency department Medications were administered in the Emergency Department. See MAR. Care significantly affected by the following Social Determinants of Health: Poor access to healthcare and/or lack of insurance, Poor access to transportation, Inadequate housing, Problems related to employment. Counseling: I had a detailed discussion with the patient and/or guardian regarding the historical points, exam findings, and any diagnostic results supporting the discharge/admit diagnosis, the presence of at least one elevated blood pressure reading (>120/80) during this emergency department visit, radiology results, the need for outpatient follow up, a orthopedic surgeon, to return to the emergency department if symptoms worsen or persist or if there are any questions or concerns that arise at home. Medication response: Toradol markedly relieved the patient's pain. ED course: Knee immobilizer and crutches applied in ER. Recommended patient follow-up with orthopedic this week. Work note given. Will give tramadol for pain control. Also recommended alternating Tylenol and Motrin as needed. Nonweightbearing. 01/05 17:14 Order name: Knee Left 3 View XRAY; Complete Time: 19:41 dr5 01/05 19:41 Order name: Knee Immobilizer; Complete Time: 02:16 dr5 01/05 19:41 Order name: Crutches; Complete Time: 02:16 dr5 Administered Medications: 17:56 Drug: Ketorolac IM 30 mg IM once Route: IM; Site: left deltoid; jb4 20:20 Follow up: Response: No adverse reaction; Marked relief of symptoms; Pain is decreased vc1 17:56 Drug: Acetaminophen PO 1000 mg PO once Route: PO; jb4 20:20 Follow up: Response: No adverse reaction; Marked relief of symptoms vc1 Disposition Summary: 01/06/24 19:52 Discharge Ordered Notes: Location: Home dr5 Condition: Stable dr5 Diagnosis - Pain in left leg dr5 Followup: dr5 - With: Emergency Department - When: As needed - Reason: Worsening of condition Followup: dr5 - With: Private Physician - When: 1 - 2 days - Reason: Recheck today's complaints, Continuance of care, Re-evaluation by your physician Discharge Instructions: - Discharge Summary Sheet dr5 - Nondisplaced Tibial Plateau Fracture dr5 Forms: - Work release form dr5 - Medication Reconciliation Form dr5 - Antibiotic Education dr5 - Patient Portal Instructions dr5 - Leadership Thank You Letter dr5 Prescriptions: - Tramadol 50 mg Oral Tablet - take 1 tablet ORAL route every 8 hours as needed; 12 tablet; Refills: 0, dr5 Product Selection Permitted Signatures: Dispatcher [employer] Gabbi Solano RN RN Jacob Kelley RN RN jb4 Hossein Matthew, EXTENSION WORK INSTRUCTOR-C EXTENSION WORK INSTRUCTOR-Cdr5 Sherly Jaramillo RN vc1 Corrections: (The following items were deleted from the chart) 17:56 17:42 Musculoskeletal/extremity: Extremities: grossly normal except: noted in the left dr5 knee: swelling, tenderness, dr5
--- NOTE | 2024-01-06 19:53 | ER ---
Nurse's Notes [facility] Name: Penelope Villarreal Age: 33 yrs Sex: Female : 1990 Arrival Date: 01/06/2024 Time: 16:48 Bed Treatment Private MD: Diagnosis: Pain in left leg Presentation: 01/05 17:09 Chief complaint: Patient states: L knee pain after hearing a pop while working out ss yesterday. Coronavirus screen: Client denies travel out of the [place] in the last 14 days. Ebola Screen: Patient denies exposure to infectious person. Patient denies travel to an Ebola-affected area in the 21 days before illness onset. Initial Sepsis Screen: Does the patient meet any 2 criteria? No. Patient's initial sepsis screen is negative. Does the patient have a suspected source of infection? No. Patient's initial sepsis screen is negative. Risk Assessment: Do you want to hurt yourself or someone else? Patient reports no desire to harm self or others. Onset of symptoms was January 05, 2024. 17:09 Method Of Arrival: Ambulatory ss 17:09 Acuity: MOMO 4 ss Historical: - Allergies: 17:10 No Known Allergies; ss - Home Meds: 17:10 None [Active]; ss - PMHx: 17:10 None; ss - PSHx: 17:10 L knee; ss - Infectious Disease History:: Denies. - Social history:: Smoking status: Patient denies any tobacco usage or history of. Screenin:16 [facility] ED Fall Risk Assessment (Adult) History of falling in the last 3 months, jb4 including since admission No falls in past 3 months (0 pts) Confusion or Disorientation No (0 pts) Intoxicated or Sedated No (0 pts) Impaired Gait No (0 pts) Mobility Assist Device Used No (0 pt) Altered Elimination No (0 pt) Score/Fall Risk Level 0 - 2 = Low Risk Oriented to surroundings, Maintained a safe environment. Abuse screen: Denies threats or abuse. Nutritional screening: No deficits noted. Tuberculosis screening: No symptoms or risk factors identified. Assessment: 18:15 General: Appears in no apparent distress. comfortable, Behavior is calm, cooperative, jb4 appropriate for age. Pain: Complains of pain in left knee Pain does not radiate. Pain currently is 10 out of 10 on a pain scale. Neuro: Level of Consciousness is awake, alert, obeys commands, Oriented to person, place, time, situation. Cardiovascular: Patient's skin is warm and dry. Respiratory: Airway is patent Respiratory effort is even, unlabored, Respiratory pattern is regular, symmetrical. Derm: Skin is intact, Skin is pink, warm \T\ dry. Musculoskeletal: Circulation, motion, and sensation intact. Range of motion: intact in all extremities. 19:00 Reassessment: report given to ALEX Dubois. jb4 20:30 Reassessment: Patient appears in no apparent distress at this time. No changes from vc1 previously documented assessment. Patient and/or family updated on plan of care and expected duration. Pain level reassessed. Patient is alert, oriented x 3, equal unlabored respirations, skin warm/dry/pink. Vital Signs: 17:09 BP 135 / 92; Pulse 85; Resp 16; Temp 97.6(TE); Pulse Ox 100% on R/A; Weight 95.25 kg; ss Height 5 ft. 6 in. ; Pain 10/10; 20:30 BP 128 / 90; Pulse 82; Resp 16; Pulse Ox 100% ; vc1 17:09 Body Mass Index 33.89 (95.25 kg, 167.64 cm) ss 17:09 Pain Scale: Adult ss ED Course: 16:50 Patient arrived in ED. mr 17:05 Hossein Matthew, UTILITY AGENT-C [facility]5 17:05 Jaime Lopez MD is Attending Physician. dr5 17:10 Triage completed. ss 17:10 Arm band placed on right wrist. ss 18:15 Jacob Leggett, ALEX is Primary Nurse. jb4 18:16 Patient has correct armband on for positive identification. Bed in low position. Call jb4 light in reach. Side rails up X 1. Provided Education on: plan of care. 18:25 Knee Left 3 View XRAY In Process Unspecified. EDMS 20:30 No provider procedures requiring assistance completed. Patient did not have IV access vc1 during this emergency room visit. Administered Medications: 17:56 Drug: Ketorolac IM 30 mg IM once Route: IM; Site: left deltoid; jb4 20:20 Follow up: Response: No adverse reaction; Marked relief of symptoms; Pain is decreased vc1 17:56 Drug: Acetaminophen PO 1000 mg PO once Route: PO; jb4 20:20 Follow up: Response: No adverse reaction; Marked relief of symptoms vc1 Medication: 20:30 VIS not applicable for this client. vc1 Outcome: 19:52 Discharge ordered by . dr5 20:30 Discharged to home with crutches, vc1 20:30 Condition: good 20:30 Discharge instructions given to patient, Instructed on discharge instructions, follow up and referral plans. medication usage, crutch walking, Demonstrated understanding of instructions, follow-up care, medications, crutch walking, Prescriptions given X 1, 20:32 Patient left the ED. vc1 Signatures: Dispatcher [employer] EDNJ Del CidYesenia, Reg Reg mr Gabbi Cintron, RN RN Jacob Leggett RN RN jb4 Sherly Jaramillo RN RN vc1 Hossein Matthew, UTILITY AGENT-C UTILITY AGENT-Cdr5 Corrections: (The following items were deleted from the chart) 17:10 17:09 Onset of symptoms was January 06, 2024 [facility]
[2024-01-06 20:36] VITALS: BP 135/92; TEMP 97.6; O2SAT 100
== END 2024-01-06 20:32 | disposition home or self-care (01) ==
LOC: ER 16:48
DX: M79.662 Pain in left lower leg (principal)
CPT/HCPCS: 96372; 99284